=== PATIENT | male | born 1960 | race Caucasian/White ===

== ENCOUNTER 2017-08-28 02:59 | Emergency (ER) | payer OTHER ==
[~2017-08-28] VITALS: Ht 172.7 cm; Wt 81.8 kg
[~2017-08-28 02:59] MED LIST: ZIAC 10/6.25M1 UDTAB PO
[2017-08-28 03:01] VITALS: BP 181/89; TEMP 98.7
[2017-08-28] MEDS ORDERED: ZOFRAN ODT4 MG PO (03:24)
[2017-08-28 03:38] VITALS: PULSE 70
== END 2017-08-28 03:39 | disposition home or self-care (01) ==
LOC: COL.ER 02:59
DX: N23 Unspecified renal colic (principal); I10 Essential (primary) hypertension; Z87.442 Personal history of urinary calculi